=== PATIENT | male | born 1990 | race Two or more races ===

== ENCOUNTER 2016-06-01 22:24 | Emergency (ER) | payer SELFPAY ==
[2016-06-01 22:35] VITALS: BP 173/97; BMI 25.6
[2016-06-02] MEDS ORDERED: ADACEL TDaP IM ONE ×2 (00:08→00:21)
[2016-06-02] MEDS ORDERED: ROCEPHIN VIAL 1 GM IM ONE (00:09)
[2016-06-02] MEDS ORDERED: DIFLUCAN PO ONE (00:09)
[2016-06-02] MEDS ORDERED: TORADOL 60 MG VIAL IM ONE (00:10)
--- NOTE | 2016-06-02 00:14 | DR.GENAD ---
HPI - PCP Primary Care Physician: NFD - Complaint/Symptoms Chief Complaint Doctors Comments: Patient complains of right foot and toes hurting, red with skin bursting between his toes getting worst yesterday. 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 they have tried a lot of creams and powders from over the counter but it is not helping. states he has been taking Motrin 200mg 2-3 pills at a time for the pain. He denies fever, chills, nausea, or vomiting. states his last tetanus was about ten years ago. States it hurts when he walks and states the pain is 9 of 10. Chief Complaint:: RIGHT TOES AND BOTTOM OF RIGHT FOOT RED FEELS SWOLLEN, REDNESS NOTRD IN BETWEEN TOES Self Treatment fo Chief Complaint: FOOT SPRAY, CREAM, ALCOHOL - Nurses notes reviewed Nurses Notes Review: Yes - Source History Provided: Family Member - Mode of Arrival Mode of Arrival: Ambulatory - Timing Onset of Chief Complaint: 05/31/16 Came on: Gradually - Duration Duration: Constant How lon Duration: Days - Location Location: right foot between toes - Severity Severity: Moderate - Modifying Factors Worsens:: walking Improves:: nothing PMH - PMH Past Medical History: No Past Surgical History: No - Family History History of Family Medical Conditions: Yes Family Medical History: Diabetes Mellitus, Cancer, [place] - Social History Does patient currently use any type of tobacco product: No Have you used tobacco products in the last 12 months: No Type of Tobacco Use: None Alcohol Use: Rarely Do you use any recreational Drugs:: No Lives With: Family Lives Where: Home - infectious screening In the last 2 months have you had wt loss of >10#?: NO Have you had fever, night sweats or hemotysis?: No Have you traveled outside the country in the last 6 months?: No Isolation: Standard ROS - Review of Systems Constitutional: No Symptoms Reported. negative: See HPI, Chills, Diaphoresis, Fever, Malaise, Weakness, Irritable, Fatigue, Loss of Appetite, Other Eyes: No Symptoms Reported. negative: See HPI, Eye Pain, Blurred Vision, Tearing, Discharge, Photophobia, Diplopia, Other ENTM: No Symptoms Reported. negative: See HPI, Ear Pain, Ear Discharge, Pulling on Ears, Hearing Loss, Nose Pain, Nose Discharge, Epistaxis, Nose Congestion, Mouth Pain, Mouth Swelling, Loose Teeth, Drooling, Throat Pain, Throat Swelling, Ear Foreign Body Respiratoy: No Symptoms Reported Cardiovascular: negative: No Symptoms Reported, See HPI, Chest Pain, Edema, Palpitations, Syncope, Cyanosis, Skin Mottling, Other Gastrointestinal/Abdominal: No Symptoms Reported. negative: See HPI, Abdominal Pain, Constipation, Diarrhea, Nausea, Vomiting, Food Intolerance, Other Genitourinary: No Symptoms Reported. negative: See HPI, Discharge, Dysuria, Frequency, Hematuria, Pain, Bleeding, Other Neurological: No Symptoms Reported Musculoskeletal: No Symptoms Reported, Right, Foot (thick skin on foot with rash between toes; right 4th toe erythematous) Integumentary: Change in Hair/Nails, Lesions (white exuade between toes; right 4th toe swollen with erythema), Rash Hematologic/Lymphatic: No Symptoms Reported. negative: See HPI, Anemia, Blood Clots, Easy Bleeding, Easy Bruising, Swollen Glands, Lymphadenopathy, Other Endocrine: No Symptoms Reported. negative: See HPI, Excessive Sweating, Flushing, Intolerance to Cold, Intolerance to Heat, Increased Hunger, Increased Thirst, Increased Urine, Unexplained Weight Gain, Unexplained Weight Loss, Failure to Thrive, Decreased Appetite, Other Psychiatric: No Symptoms Reported. negative: See HPI, Anxiety, Depression, Hallucinations, Excessive crying, Suicidal, Other PE - Vital Signs Vitals: Temperature 98.3 F Pulse Rate 98 Respiratory Rate 16 Blood Pressure 173/97 O2 Sat by Pulse Oximetry 99 - General Limitations: No Limitations General Appearance: Alert, In Distress (mild) - Head Head Exam: Normal Inspection, Atraumatic, Normocephalic - Eyes Eye exam: Normal Appearance, PERRL, EOMI. negative: Scleral Icterus, Conjunctival Injection, Nystagmus, Miosis, Mydrasis, Periorbital Swelling, Periorbital Tenderness, Other - ENT ENT Exam: Normal Exam, Normal Oropharynx, Normal External Ear Exam, Mucous Membranes Moist, TM's Normal Bilaterally External Ear Exam: Normal External Inspection TM/Canal Exam: Bilateral Normal Nose Exam: Normal Nose Exam Mouth Exam: Normal Inspection Throat Exam: Normal Inspection. negative: Tonsillar Erythema, Tonsillomegaly, Tonsillar Exudate, R Peritonsillar Mass, L Peritonsillar Mass, Muffled Voice, Other - Neck Neck Exam: Normal Inspection, Full ROM, Trachea Midline - Chest Chest Inspection: Normal Inspection, Symmetric Chest Wall Rise. negative: Tenderness, Rash, Abscess, Other - Respiratory Respiratory Exam: Normal Lung Sounds Bilat Respiratory Exam: Bilateral Clear to Auscultation - Cardiovascular Cardiovascular Exam: Regular Rate, Normal Rhythm, Normal Heart Sounds - Abdominal Exam Abdominal Exam: Normal Inspection, Normal Bowel Sounds, Soft Abdominal Tenderness: negative: RUQ, RLQ, LUQ, LLQ, Epigastrium, Suprapubic, Diffuse, Mild, Moderate, Severe, Other - Extremities Extremities Exam: Normal Inspection, Full ROM, Tenderness (right foot between toes with exudate), Normal Capillary Refill - Back Back Exam: Normal Inspection, Full ROM. negative: Tenderness, (R) CVA Tenderness, (L) CVA Tenderness, Muscle Spasm, Paraspinal Tenderness, Vertebral Tenderness, Rashes, (R) Sciatic Notch Tenderness, (L) Sciatic Notch Tendern, (R ) Straight Leg Raise, (L) Straight Leg Raise, Other - Neurologic Neurological Exam: Alert, Oriented X3, CN II-XII Intact, Reflexes Normal. negative: Normal Gait (gait not tested) - Psychiatric Psychiatric Exam: Normal Affect, Normal Mood - Skin Skin Exam: Warm, Dry, Intact, Normal Color, Rash, Erythema (right 4th toe with slight swelling) - Diagnosis Discharge Problem: Cellulitis of right toe, Tinea pedis of right foot - Discharge Plan Disposition: 01 HOME, SELF-CARE Condition: Stable Prescriptions: Cephalexin [KEFLEX CAP 500 MG *] 500 mg PO TID #30 cap Clotrimazole/Betamethasone Crm [LOTRISONE CREAM 1/0.05 % *] 1 applic EXT BID # 15 gm Griseofulvin Ultramicrosize [Hellen-Peg] 375 mg PO DAILY #14 tab Ibuprofen [MOTRIN TAB 800 MG *] 800 mg PO BID PRN #60 tab PRN Reason: Pain/Inflammation - Follow ups/Referrals Follow ups/Referrals: KATEY,None [Primary Care Provider] - 3 days MADELEINE MEYERS [STAFF PHYSICIAN] - 3 days - Instructions Instructions: Cellulitis, Athlete's Foot
[2016-06-02] MEDS ORDERED: TORADOL 60 MG VIAL ONE (00:20)
[2016-06-02] MEDS ORDERED: ROCEPHIN VIAL 1 GM ONE (00:21)
== END 2016-06-02 01:10 | disposition home or self-care (01) ==
LOC: ER 22:24
DX: L03.031 Cellulitis of right toe (principal); B35.3 Tinea pedis
CPT/HCPCS: 90471; 96372; 99282; 99283; J0696; J1885